=== PATIENT | male | born 1990 | race African-American/Black ===

== ENCOUNTER 2020-01-24 09:55 | Emergency (ER) | payer MEDICAID ==
[~2020-01-24] VITALS: Ht 165.1 cm; Wt 75.7 kg
[2020-01-24 10:00] VITALS: BP 113/77
--- NOTE | 2020-01-24 10:11 | NUR ---
Patient ambulated to bed 8. RN evaluating patient at bedside.
--- NOTE | 2020-01-24 10:28 | NUR ---
pt needs suture removal to right chin. Per pt he fell on glass and seen at [facility] x1 week ago for suture placement. denies discharge. Pt also adds right wrist pain 10/10 from skateboarding accident x2 weeks ago. xrays were performed at [facility]. splinted wrist. Per pt he took splint off x 2 days ago and has not followed up with pcp. states he needs a doctors note to be able to drive for work. pt reports he has been taking prescription of ibuprofen 600 mg for wrist, with no relief.
--- NOTE | 2020-01-24 10:32 | NUR ---
full rom to r wrist. + radial pulse.
--- NOTE | 2020-01-24 11:15 | NUR ---
xray at bedside
--- NOTE | 2020-01-24 11:20 | NUR ---
Dr. Castellon is evaluating the patient at bedside.
--- NOTE | 2020-01-24 12:02 | NUR ---
applied thumb spica and sling to right arm without any issues
--- NOTE | 2020-01-24 12:23 | NUR ---
cap refill < 3 seconds
[2020-01-24 12:24] VITALS: BP 122/72
--- NOTE | 2020-01-24 12:24 | NUR ---
Patient discharged with v/s stable. Written and verbal after care instructions given and explained. Patient alert, oriented and verbalized understanding of instructions. Ambulatory with steady gait. All questions addressed prior to discharge. ID band removed. Patient advised to follow up with PMD. Rx of naprosyn prn pain given. Patient educated on indication of medication including possible reaction and side effects. Opportunity to ask questions provided and answered. pt instructed to continue wearing splint until instructed to remove by pcp pt given excuse for work today. 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
== END 2020-01-24 12:24 | disposition home or self-care (01) ==
LOC: MED 09:55
DX: M25.531 Pain in right wrist (principal); Z88.0 Allergy status to penicillin; Z48.02 Encounter for removal of sutures
CPT/HCPCS: 29105; 73110; 99283; Q0092